=== PATIENT | male | born 1990 | race African-American/Black ===

== ENCOUNTER 2017-06-18 11:03 | Emergency (ER) | payer SELFPAY ==
[2017-06-18] MEDS ORDERED: Ketorolac 30 MG/ML SDV IVPUSH ONE (11:30)
[2017-06-18] MEDS ORDERED: Sodium Chloride 0.9% 1,000 ML IV ONE (11:30)
[2017-06-18 12:23] LABS: CHLORIDE,CL 104 mmol/L (98-110); SODIUM,NA 138 mmol/L (136-146)
--- NOTE | 2017-06-18 12:49 | EDM.PDOC ---
ED HPI GENERAL MEDICAL PROBLEM - General Chief Complaint: General Stated Complaint: FEVER Time Seen by Provider: 06/18/17 11:45 Source of Information: Reports: Patient History Limitations: Reports: No Limitations - History of Present Illness INITIAL COMMENTS - FREE TEXT/NARRATIVE: History of present illness: 27-year-old male comes in complaining of general feelings of being unwell intermittent fevers. Review of systems: As per history of present illness and below otherwise all systems reviewed and negative. Past medical history: As per history of present illness and as reviewed below otherwise noncontributory. Surgical history: As per history of present illness and as reviewed below otherwise noncontributory. Social history: No reported history of drug or alcohol abuse. Family history: As per history of present illness and as reviewed below otherwise noncontributory. Physical exam: HEENT: Atraumatic, normocephalic, pupils reactive, negative for conjunctival pallor or scleral icterus, mucous membranes moist, throat clear, neck supple, nontender, trachea midline. Lungs: Clear to auscultation, breath sounds equal bilaterally, chest nontender. Heart: S1S2, regular, negative for clicks, rubs, or JVD. Abdomen: Soft, nondistended, nontender. Negative for masses or hepatosplenomegaly. Negative for costovertebral tenderness. Pelvis: Stable nontender. Genitourinary: Deferred. Rectal: Deferred. Extremities: Atraumatic, negative for cords or calf pain. Neurovascular unremarkable. Neuro: Awake, alert, oriented. Cranial nerves II through XII unremarkable. Cerebellum unremarkable. Motor and sensory unremarkable throughout. Exam nonfocal. Global assessment is benign save subjective complaint as noted in history of present illness Diagnostics: [] Therapeutics: [] Impression: [Viral syndrome] Plan: [Rest, hydrate] Definitive disposition and diagnosis as appropriate pending reevaluation and review of above. Generalized Pain Score (Numeric/FACES): 3 - Related Data Allergies Allergy/AdvReac Type Severity Reaction Status Date / Time No Known Allergies Allergy Verified 06/18/17 11:16 Home Meds: Home Meds Ondansetron [Zofran ODT] 4 mg PO Q4H #30 tab.dis 06/18/17 [Rx] Orphenadrine [Norflex] 100 mg PO BID #28 tab.er 06/18/17 [Rx] Past Medical History HEENT History: Reports: None Cardiovascular History: Reports: None Respiratory History: Reports: None Genitourinary History: Reports: None Musculoskeletal History: Reports: None Neurological History: Reports: None Dermatologic History: Reports: None - Infectious Disease History Infectious Disease History: Reports: None - Past Surgical History HEENT Surgical History: Reports: None Respiratory Surgical History: Reports: None GI Surgical History: Reports: None Male Surgical History: Reports: None Neurological Surgical History: Reports: None Social & Family History - Tobacco Use Smoking Status *Q: Never Smoker ED ROS GENERAL - Review of Systems Review Of Systems: See Below (History of present illness) ED EXAM, GENERAL - Physical Exam Exam: See Below (The history of present illness) Course - Vital Signs Last Recorded V/S: Last Vital Signs Temp 37.1 C 06/18/17 11:17 Pulse 60 06/18/17 11:17 Resp 18 06/18/17 11:17 BP 127/69 06/18/17 11:17 Pulse Ox 98 06/18/17 11:17 - Orders/Labs/Meds Labs: Laboratory Tests 06/18/17 06/18/17 Range/Units 11:38 11:38 WBC 3.12 L (4.0-11.0) K/uL RBC 5.40 (4.50-5.90) M/uL Hgb 15.9 (13.0-17.0) g/dL Hct 46.0 (38.0-50.0) % MCV 85.2 (80.0-98.0) fL MCH 29.4 (27.0-32.0) pg MCHC 34.6 (31.0-37.0) g/dL RDW Std Deviation 41.2 (28.0-62.0) fl RDW Coeff of Monique 13 (11.0-15.0) % Plt Count 165 (150-400) K/uL MPV 10.20 (7.40-12.00) fL Add Manual Diff YES Neutrophils % (Manual) 39 L (48.0-80.0) % Band Neutrophils % 5 % Lymphocytes % (Manual) 41 H (16.0-40.0) % Monocytes % (Manual) 15 (0.0-15.0) % Nucleated RBC % 0.0 /100WBC Absolute Seg Neuts 1.2 Band Neutrophils # 0.2 Lymphocytes # (Manual) 1.3 Monocytes # (Manual) 0.5 Nucleated RBCs # 0 K/uL Sodium 138 (136-146) mmol/L Potassium 4.1 (3.5-5.1) mmol/L Chloride 104 (98-110) mmol/L Carbon Dioxide 26 (21-31) mmol/L BUN 12 (6.0-23.0) mg/dL Creatinine 1.2 (0.6-1.5) mg/dL Est Cr Clr Drug Dosing TNP Estimated GFR (MDRD) > 60.0 ml/min Glucose 113 H (60-110) mg/dL Calcium 8.9 (8.8-10.8) mg/dL Total Bilirubin 0.8 (0.1-1.5) mg/dL AST 24 (5-40) IU/L ALT 16 (8-54) IU/L Alkaline Phosphatase 80 (40-150) Total Protein 7.7 (6.0-8.0) g/dL Albumin 4.1 (3.5-5.0) g/dL Globulin 3.6 H (2.0-3.5) g/dL Albumin/Globulin Ratio 1.1 L (1.3-2.8) Meds: Medications Discontinued Medications Generic Name Dose Route Start Last Admin Trade Name Freq PRN Reason Stop Dose Admin Sodium Chloride 1,000 mls @ 999 mls/hr 06/18/17 11:30 06/18/17 11:41 Normal Saline IV 06/18/17 12:30 999 mls/hr STAT ONE Administration Ketorolac Tromethamine 30 mg 06/18/17 11:30 06/18/17 11:41 Toradol IVPUSH 06/18/17 11:31 30 mg ONETIME ONE Administration Departure - Departure Time of Disposition: 12:48 Disposition: Home, Self-Care 01 Condition: Good Clinical Impression: Viral syndrome - Discharge Information Forms: ED Department Discharge Additional Instructions: The following information is given to patients seen in the emergency department who are being discharged to home. This information is to outline your options for follow-up care. We provide all patients seen in our emergency department with a follow-up referral. The need for follow-up, as well as the timing and circumstances, are variable depending upon the specifics of your emergency department visit. If you don't have a primary care physician on staff, we will provide you with a referral. We always advise you to contact your personal physician following an emergency department visit to inform them of the circumstance of the visit and for follow-up with them and/or the need for any referrals to a consulting specialist. The emergency department will also refer you to a specialist when appropriate. This referral assures that you have the opportunity for follow-up care with a specialist. All of these measure are taken in an effort to provide you with optimal care, which includes your follow-up. Under all circumstances we always encourage you to contact your private physician who remains a resource for coordinating your care. When calling for follow-up care, please make the office aware that this follow-up is from your recent emergency room visit. If for any reason you are refused follow-up, please contact the [facility] Emergency Department at and asked to speak to the emergency department charge nurse. Take medication as directed Follow-up with PCP 1-2 days Return to ED as needed as discussed
[2017-06-18 13:12] VITALS: BP 108/65
== END 2017-06-18 13:12 | disposition home or self-care (01) ==
LOC: MW.ED 11:03
DX: B34.9 Viral infection, unspecified (principal)
CPT/HCPCS: 80053; 85025; 96361; 96374; 99283; J1885; J7040; 99284